=== PATIENT | male | born 1980 | race Caucasian/White ===

== ENCOUNTER 2017-11-28 11:32 | Emergency (ER) | payer OTHER ==
[~2017-11-28] VITALS: Ht 170.2 cm; Wt 68.7 kg
[2017-11-28 12:21] VITALS: BP 103/67; Ht 170.2 cm; Wt 68.7 kg
== END 2017-11-28 13:21 | disposition left against medical advice (07) ==
LOC: ED 11:32
DX: Z53.21 Procedure and treatment not carried out due to patient leaving prior to being seen by health care provider (principal)